=== PATIENT | female | born 1985 | race Caucasian/White ===

== ENCOUNTER 2017-09-20 18:36 | Inpatient (IN) | payer OTHER ==
[2017-09-20 20:45] VITALS: BMI 24.0
[2017-09-20] MEDS ORDERED: MELATONIN 5 MG TABLETS PO PRN (22:00)
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
[2017-09-20] MEDS ORDERED: MAG HYDROX/AL HYDROX/SIMETH 30 ML UNIT-DOSE CUP PO PRN (22:45)
[2017-09-20] MEDS ORDERED: LOPERAMIDE HCL 2 MG CAPSULE PO PRN (22:45)
[2017-09-20] MEDS ORDERED: MENTHOL/PHENOL 1 EACH UD MM PRN (22:45)
[2017-09-20] MEDS ORDERED: guaiFENesin/D-METHORPHAN HB 10 ML UNIT-DOSE CUPS PO PRN (22:45)
[2017-09-20] MEDS ORDERED: MAGNESIUM CITRATE 300 ML BOTTLE PO PRN (22:45)
[2017-09-20] MEDS ORDERED: P-EPHED 60MG/TRIPROLIDI 2.5MG TABLET PO PRN (22:45)
[2017-09-20] MEDS ORDERED: ACETAMINOPHEN 325 MG TABLET (FP) PO PRN (22:45)
[2017-09-20] MEDS ORDERED: IBUPROFEN 400 MG TABLET (FP) PO PRN (22:45)
[2017-09-20] MEDS ORDERED: MAGNESIUM HYDROX 2400MG/30ML ORAL SUSPENSION 30 ML CUP PO PRN (22:45)
[2017-09-20] MEDS ORDERED: diazePAM 5 MG TABLET PO ONE (22:45)
[2017-09-20] MEDS ORDERED: cloNIDine HCL 0.1 MG TABLET PO ONE (22:56)
[2017-09-21] MEDS ORDERED: cloNIDine HCL 0.1 MG TABLET PO ONE (01:30)
[2017-09-21] MEDS: LIDOCAINE PATCH REMOVAL MC SCH ×2 (01:32→22:01)
[2017-09-21] MEDS: diazePAM 5 MG TABLET PO SCH ×5 (01:33→21:54)
[2017-09-21] MEDS: diazePAM 5 MG TABLET PO PRN ×3 (05:45→16:00)
[2017-09-21] MEDS ORDERED: CYCLOBENZAPRINE HCL 5 MG TABLET PO SCH (06:00)
--- NOTE | 2017-09-21 08:57 | EKG ---
Test Reason : Blood Pressure : / mmHG Vent. Rate : 086 BPM Atrial Rate : 086 BPM P-R Int : 124 ms QRS Dur : 078 ms QT Int : 372 ms P-R-T Axes : 073 075 043 degrees QTc Int : 445 ms NORMAL SINUS RHYTHM NORMAL ECG NO PREVIOUS ECGS AVAILABLE Confirmed by MARCK DOMINGUEZ MD ([id number]) on 09/21/2017 8:56:55 AM Referred By: Confirmed By:MARCK DOMINGUEZ MD
[2017-09-21] MEDS: PRENATAL VITAMINS W/ FOLIC ACID TABLET (FP) PO SCH (10:24)
[2017-09-21] MEDS: LIDOCAINE 5% TOPICAL PATCH TP SCH (10:26)
[2017-09-21] MEDS ORDERED: METHADONE HCL 10 MG TABLET (FOR DETOX USE ONLY) PO ONE ×2 (10:32→23:00)
--- NOTE | 2017-09-21 10:33 | PN ---
[facility] CIWA - CIWA Score Nausea/Vomitin Muscle Tremors: 3 Anxiety: 2 Agitation: 2 Paroxysmal Sweats: 1-Minimal Palms Moist Orientation: 0-Oriented Tacttile Disturbances: 1-Very Mild Itch/Numbness Auditory Disturbances: 1-Very Mild Visual Disturbances: 0-None Headache: 2-Mild CIWA-Ar Total Score: 15 BHS COWS - Scale Resting Pulse: 1= [place] 81-100 Sweatin= Chills/Flushing Restless Observation: 3= Extraneous Movement Pupil Size: 1= Pupils >than Normal Bone or Joint Aches: 2= Severe Diffuse Aches Runny Nose/ Eye Tearin= Runny Nose/Eyes GI Upset > 30mins: 2= Nausea/Diarrhea Tremor Observation of Outstretched Hands: 2= Slight Tremor Visible Yawning Observation: 1= 1-2x During Session Anxiety or Irritability: 2=Irritable/Anxious Goose Flesh Skin: 0=Smooth Skin COWS Score: 17 S Progress Note (SOAP) Subjective: alert,irritable,anxious,interrupted leep,pain in the body and back Objective: 09/21/17 10:31 Vital Signs Temperature 97.9 F 09/21/17 10:01 Pulse Rate 86 09/21/17 10:01 Respiratory Rate 18 09/21/17 10:01 Blood Pressure 140/91 09/21/17 10:01 O2 Sat by Pulse Oximetry (%) ekg nsr,normal ecg qt/qtc 372/445 labs pending Assessment: 09/21/17 10:33 withdrawal symptom Plan: continue detox
[2017-09-21] MEDS ORDERED: CYCLOBENZAPRINE HCL 10 MG TABLET (FP) PO PRN (10:34)
[2017-09-21 10:59] LABS: CHLORIDE 103 mmol/L (98-107); HEMATOCRIT 43.1 % (32.4-45.2); HEMOGLOBIN 14.5 GM/dL (10.7-15.3); MCH 30.8 pg (25.7-33.7); MCHC 33.7 g/dl (32.0-36.0); MEAN CELL VOLUME 91.3 fl (80-96); MEAN PLT VOLUME 10.3 fl (7.5-11.1); PLATELET COUNT 282 K/MM3 (134-434); POTASSIUM 4.3 mmol/L (3.5-5.1); RBC 4.72 M/mm3 (3.60-5.2); RDW 14.2 % (11.6-15.6); SODIUM 141 mmol/L (136-145)
[2017-09-21 11:27] LABS: ALK PHOS 104 U/L (45-117); ANION GAP 11 (8-16); BILIRUBIN,TOTAL 0.8 mg/dL (0.2-1.0); BLOOD UREA NITROGEN 8 mg/dL (7-18); CALCIUM 9.2 mg/dL (8.5-10.1); CO2 27 mmol/L (21-32); CREATININE 0.5 mg/dL (0.55-1.02); GLUCOSE,RANDOM 88 mg/dL (74-106); SGOT/AST 24 U/L (15-37); SGPT/ALT 26 U/L (12-78); TOT PROT 7.6 g/dl (6.4-8.2)
--- NOTE | 2017-09-21 13:29 | CONSULT ---
[facility] Psychiatric Consult - Data Date of interview: 09/21/17 Admission source: [facility] Identifying data: Patient is a 31 year old single female, without kids, domiciled and employed. This is patient's first admission to detox at [facility]. Pt. admitted to for opioid and benzodiazepine dependence. Substance Abuse History: Smoking Cessation. Smoking history: Former smoker. Have you smoked in the past 12 months: No. Hx Chewing Tobacco Use: No. Initiated information on smoking cessation: No. - Substance & Tx. History. Hx Alcohol Use: Yes. Hx Substance Use: Yes. Substance Use Type: Opiates, Tranquilizers. Hx Substance Use Treatment: Yes (Last detox nd2014.). - Substances Abused. GHB. Route: Oral. Frequency: Daily. Amount used: 1/ 5 pint. Age of first use: 22. Date of Last Use: 09/19/17. Oxycontin. Route: Oral. Frequency: Daily. Amount used: 1 - 2 40mg tab. Age of first use : 14. Date of Last Use: 09/19/17. Alprazolam (Xanax). Route: Oral. Frequency: Daily. Amount used: 3 x 1 mg tabs. Age of first use: 27. Date of Last Use: 09/19/17 Medical History: Breast implants 2009 Psychiatric History: Patient denies h/o psychiatric hospitalizations, outpatient care, and suicide attempt. Physical/Sexual Abuse/Trauma History: Denies. Mental Status Exam - Mental Status Exam Alert and Oriented to: Time, Place, Person Cognitive Function: Good Patient Appearance: Unkempt Mood: Withdrawn Affect: Mood Congruent Patient Behavior: Sedated, Fatigued Speech Pattern: Delayed Voice Loudness: Moderately Soft/Quiet Thought Process: Intact, Goal Oriented Thought Disorder: Not Present Hallucinations: Denies Suicidal Ideation: Denies Homicidal Ideation: Denies Insight/Judgement: Poor Sleep: Fair Appetite: Fair Muscle strength/Tone: Normal Gait/Station: Normal Psychiatric Findings - Problem List ([place] 1, 2,3) (1) Amphetamine dependence Current Visit: Yes Status: Acute (2) Opioid dependence with withdrawal Current Visit: Yes Status: Acute (3) Sedative, hypnotic or anxiolytic dependence with withdrawal, unspecified Current Visit: Yes Status: Acute (4) Substance induced mood disorder Current Visit: Yes Status: Acute - Initial Treatment Plan Initial Treatment Plan: Psychoeducation provided. Detoxification in progress. Observation.
[2017-09-21] MEDS ORDERED: NICOTINE POLACRILEX 2 MG GUM BUC PRN (14:32)
[2017-09-21 14:44] LABS: URINE APPEARANCE SLCLOUDY; URINE BILIRUBIN NEGATIVE (<2.0 mg/dL); URINE COLOR YELLOW; URINE GLUCOSE (UA) NEGATIVE (NEGATIVE); URINE KETONE NEGATIVE (NEGATIVE); URINE LEUK ESTERASE NEGATIVE (NEGATIVE); URINE NITRITE NEGATIVE (NEGATIVE); URINE PROTEIN NEGATIVE (NEGATIVE); URINE UROBILINOGEN NEGATIVE mg/dL (0.2-1.0)
[2017-09-21] MEDS: hydrOXYzine PAMOATE 50 MG CAPSULE (FP) PO PRN (16:35)
[2017-09-21] MEDS: NICOTINE 21 MG/24 HOURS TOPICAL PATCH TD SCH (18:47)
[2017-09-21] MEDS: cloNIDine HCL 0.1 MG TABLET PO SCH (21:55)
[2017-09-21] MEDS: THIAMINE HCL 100 MG TABLET (FP) PO SCH (22:03)
[2017-09-22] MEDS: diazePAM 5 MG TABLET PO PRN ×3 (03:07→19:44)
[2017-09-22] MEDS ORDERED: METHADONE HCL 10 MG TABLET (FOR DETOX USE ONLY) PO ONE (10:00)
[2017-09-22] MEDS: NICOTINE 21 MG/24 HOURS TOPICAL PATCH TD SCH (10:44)
[2017-09-22] MEDS: cloNIDine HCL 0.1 MG TABLET PO SCH ×2 (10:44→22:25)
[2017-09-22] MEDS: PRENATAL VITAMINS W/ FOLIC ACID TABLET (FP) PO SCH (10:44)
[2017-09-22] MEDS: diazePAM 5 MG TABLET PO SCH ×2 (10:44→22:25)
[2017-09-22] MEDS: LIDOCAINE 5% TOPICAL PATCH TP SCH (10:45)
--- NOTE | 2017-09-22 11:23 | PN ---
[facility] CIWA - CIWA Score Nausea/Vomitin Muscle Tremors: 3 Anxiety: 3 Agitation: 2 Paroxysmal Sweats: 3 Orientation: 0-Oriented Tacttile Disturbances: 0-None Auditory Disturbances: 0-None Visual Disturbances: 0-None Headache: 0-None Present CIWA-Ar Total Score: 14 S COWS - Scale Resting Pulse: 1= [place] 81-100 Sweatin=Flushed/Facial Moisture Restless Observation: 1= Difficult to Sit Still Pupil Size: 0= Normal to Room Light Bone or Joint Aches: 1= Mild Discomfort Runny Nose/ Eye Tearin= Nasal Congestion GI Upset > 30mins: 0= None Tremor Observation of Outstretched Hands: 2= Slight Tremor Visible Yawning Observation: 1= 1-2x During Session Anxiety or Irritability: 2=Irritable/Anxious Goose Flesh Skin: 0=Smooth Skin COWS Score: 11 [facility] Progress Note (SOAP) Subjective: Sweats shakes sleep disturbance c/o "Can't see out of R eye", says she does not know if she scratched her eye or not Objective: 09/22/17 11:23 A & O x 3 No foreign object noted to R eye Some tearing and slight redness noted Vital Signs Temperature 98.4 F 09/22/17 09:34 Pulse Rate 84 09/22/17 09:34 Respiratory Rate 18 09/22/17 09:34 Blood Pressure 126/75 09/22/17 09:34 O2 Sat by Pulse Oximetry (%) Laboratory Last Values WBC 10.0 K/mm3 (4.0-10.0) 09/21/17 08:00 RBC 4.72 M/mm3 (3.60-5.2) 09/21/17 08:00 Hgb 14.5 GM/dL (10.7-15.3) 09/21/17 08:00 Hct 43.1 % (32.4-45.2) 09/21/17 08:00 MCV 91.3 fl (80-96) 09/21/17 08:00 MCH 30.8 pg (25.7-33.7) 09/21/17 08:00 MCHC 33.7 g/dl (32.0-36.0) 09/21/17 08:00 RDW 14.2 % (11.6-15.6) 09/21/17 08:00 Plt Count 282 K/MM3 (134-434) 09/21/17 08:00 MPV 10.3 fl (7.5-11.1) 09/21/17 08:00 Sodium 141 mmol/L (136-145) 09/21/17 08:00 Potassium 4.3 mmol/L (3.5-5.1) 09/21/17 08:00 Chloride 103 mmol/L (98-107) 09/21/17 08:00 Carbon Dioxide 27 mmol/L (21-32) 09/21/17 08:00 Anion Gap 11 (8-16) 09/21/17 08:00 BUN 8 mg/dL (7-18) 09/21/17 08:00 Creatinine 0.5 mg/dL (0.55-1.02) L 09/21/17 08:00 Creat Clearance w eGFR > 60 (>60) 09/21/17 08:00 Random Glucose 88 mg/dL (74-106) 09/21/17 08:00 Calcium 9.2 mg/dL (8.5-10.1) 09/21/17 08:00 Total Bilirubin 0.8 mg/dL (0.2-1.0) 09/21/17 08:00 AST 24 U/L (15-37) 09/21/17 08:00 ALT 26 U/L (12-78) 09/21/17 08:00 Alkaline Phosphatase 104 U/L (45-117) 09/21/17 08:00 Total Protein 7.6 g/dl (6.4-8.2) 09/21/17 08:00 Albumin 4.0 g/dl (3.4-5.0) 09/21/17 08:00 Urine Color Yellow 09/21/17 12:50 Urine Appearance Slcloudy 09/21/17 12:50 Urine pH 7.0 (5.0-8.0) 09/21/17 12:50 Ur Specific [place] 1.011 (1.001-1.035) 09/21/17 12:50 Urine Protein Negative (NEGATIVE) 09/21/17 12:50 Urine Glucose (UA) Negative (NEGATIVE) 09/21/17 12:50 Urine Ketones Negative (NEGATIVE) 09/21/17 12:50 Urine Blood Negative (NEGATIVE) 09/21/17 12:50 Urine Nitrite Negative (NEGATIVE) 09/21/17 12:50 Urine Bilirubin Negative (<2.0 mg/dL) 09/21/17 12:50 Urine Urobilinogen Negative mg/dL (0.2-1.0) 09/21/17 12:50 Ur Leukocyte Esterase Negative (NEGATIVE) 09/21/17 12:50 RPR Titer Nonreactive (NONREACTIVE) 09/21/17 08:00 labs noted Assessment: 09/22/17 11:24 Withdrawal sx ?R eye irritation/? corneal abrasion? Plan: Continue detox Antibiotics drop to R eye Increase hydration
[2017-09-22] MEDS ORDERED: SULFACETAMIDE/PREDNISOLONE 0.2% OPTHALMIC SUSP 5 ML BOTTLE OD ONE (11:29)
[2017-09-22] MEDS ORDERED: SULFACETAMIDE/PREDNISOLONE 0.2% OPTHALMIC SUSP 5 ML BOTTLE OD SCH (12:15)
[2017-09-22] MEDS: SULFACETAMIDE/PREDNISOLONE 0.2% OPTHALMIC SUSP 5 ML BOTTLE OD SCH (17:29)
[2017-09-22] MEDS: hydrOXYzine PAMOATE 50 MG CAPSULE (FP) PO PRN (17:32)
[2017-09-22] MEDS: THIAMINE HCL 100 MG TABLET (FP) PO SCH (22:26)
[2017-09-22] MEDS: LIDOCAINE PATCH REMOVAL MC SCH (22:26)
[2017-09-23] MEDS: diazePAM 5 MG TABLET PO PRN ×2 (01:32→05:25)
[2017-09-23] MEDS: hydrOXYzine PAMOATE 50 MG CAPSULE (FP) PO PRN (06:21)
[2017-09-23 09:15] VITALS: BP 95/54; PULSE 66; TEMP 97.6
[2017-09-23] MEDS ORDERED: METHADONE HCL 5 MG TABLET (FOR DETOX USE ONLY) PO ONE (10:00)
[2017-09-23] MEDS: PRENATAL VITAMINS W/ FOLIC ACID TABLET (FP) PO SCH (10:33)
[2017-09-23] MEDS: SULFACETAMIDE/PREDNISOLONE 0.2% OPTHALMIC SUSP 5 ML BOTTLE OD SCH (10:34)
[2017-09-23] MEDS: LIDOCAINE 5% TOPICAL PATCH TP SCH (10:34)
[2017-09-23] MEDS: diazePAM 5 MG TABLET PO SCH (10:34)
[2017-09-23] MEDS: cloNIDine HCL 0.1 MG TABLET PO SCH (10:35)
[2017-09-23] MEDS: NICOTINE 21 MG/24 HOURS TOPICAL PATCH TD SCH (10:35)
--- NOTE | 2017-09-23 13:30 | DS ---
[facility] Detox Discharge Summary Admission Date: 09/20/17 Discharge Date: 09/23/17 - History Present History: Opioid Dependence, Sedative Dependence Additional Comments: 31 years old female admitted on 09/20/17 for opiate and banzo withdrawal sx patient wants phenobarbital as detox agent that she had been detoxed 10+ years ago at [place] received twice daily oxycodone 40 mg monthly prescription last filled 08/23/17 received three times daily xanax 1 mg monthly prescription last filled 08/23/17 patient insists to terminate current methadone and valium detox regimen insists phenobarbital as detox agent "father is waiting down stair" to take Kemi home Pertinent Past History: encourage the patient discuss pain manage by oxycodone and anxiety manage by xanax with psychiatrist or primary care provider explore options of medication - assisted maintenance treatment - Physical Exam Results Vital Signs: Vital Signs Temperature 97.6 F 09/23/17 09:14 Pulse Rate 66 09/23/17 09:14 Respiratory Rate 16 09/23/17 09:14 Blood Pressure 95/54 09/23/17 09:14 O2 Sat by Pulse Oximetry (%) Pertinent Admission Physical Exam Findings: opiate and banzo withdrawal sx Vital Signs Temperature 97.6 F 09/23/17 09:14 Pulse Rate 66 09/23/17 09:14 Respiratory Rate 16 09/23/17 09:14 Blood Pressure 95/54 09/23/17 09:14 O2 Sat by Pulse Oximetry (%) Laboratory Last Values WBC 10.0 K/mm3 (4.0-10.0) 09/21/17 08:00 RBC 4.72 M/mm3 (3.60-5.2) 09/21/17 08:00 Hgb 14.5 GM/dL (10.7-15.3) 09/21/17 08:00 Hct 43.1 % (32.4-45.2) 09/21/17 08:00 MCV 91.3 fl (80-96) 09/21/17 08:00 MCH 30.8 pg (25.7-33.7) 09/21/17 08:00 MCHC 33.7 g/dl (32.0-36.0) 09/21/17 08:00 RDW 14.2 % (11.6-15.6) 09/21/17 08:00 Plt Count 282 K/MM3 (134-434) 09/21/17 08:00 MPV 10.3 fl (7.5-11.1) 09/21/17 08:00 Sodium 141 mmol/L (136-145) 09/21/17 08:00 Potassium 4.3 mmol/L (3.5-5.1) 09/21/17 08:00 Chloride 103 mmol/L (98-107) 09/21/17 08:00 Carbon Dioxide 27 mmol/L (21-32) 09/21/17 08:00 Anion Gap 11 (8-16) 09/21/17 08:00 BUN 8 mg/dL (7-18) 09/21/17 08:00 Creatinine 0.5 mg/dL (0.55-1.02) L 09/21/17 08:00 Creat Clearance w eGFR > 60 (>60) 09/21/17 08:00 Random Glucose 88 mg/dL (74-106) 09/21/17 08:00 Calcium 9.2 mg/dL (8.5-10.1) 09/21/17 08:00 Total Bilirubin 0.8 mg/dL (0.2-1.0) 09/21/17 08:00 AST 24 U/L (15-37) 09/21/17 08:00 ALT 26 U/L (12-78) 09/21/17 08:00 Alkaline Phosphatase 104 U/L (45-117) 09/21/17 08:00 Total Protein 7.6 g/dl (6.4-8.2) 09/21/17 08:00 Albumin 4.0 g/dl (3.4-5.0) 09/21/17 08:00 Urine Color Yellow 09/21/17 12:50 Urine Appearance Slcloudy 09/21/17 12:50 Urine pH 7.0 (5.0-8.0) 09/21/17 12:50 Ur Specific [place] 1.011 (1.001-1.035) 09/21/17 12:50 Urine Protein Negative (NEGATIVE) 09/21/17 12:50 Urine Glucose (UA) Negative (NEGATIVE) 09/21/17 12:50 Urine Ketones Negative (NEGATIVE) 09/21/17 12:50 Urine Blood Negative (NEGATIVE) 09/21/17 12:50 Urine Nitrite Negative (NEGATIVE) 09/21/17 12:50 Urine Bilirubin Negative (<2.0 mg/dL) 09/21/17 12:50 Urine Urobilinogen Negative mg/dL (0.2-1.0) 09/21/17 12:50 Ur Leukocyte Esterase Negative (NEGATIVE) 09/21/17 12:50 RPR Titer Nonreactive (NONREACTIVE) 09/21/17 08:00 lab noted - Treatment Hospital Course: Detox Protocol Followed, Responded well Patient has Accepted a Rehab Referral to: [facility] - Medication Discharge Medications: Ambulatory Orders Alprazolam [Xanax] 4 mg PO DAILY 09/20/17 Oxycodone HCl [Oxycodone HCl ER] 20 mg PO BID 09/20/17 - Diagnosis (1) Opioid dependence with withdrawal Status: Acute (2) Pain management Status: Chronic (3) Sedative, hypnotic or anxiolytic dependence with withdrawal, unspecified Status: Acute (4) Xanax use disorder, mild, in controlled environment Status: Acute - AMA Did Patient Leave Against Medical Advice: Yes
[2017-09-24] MEDS ORDERED: METHADONE HCL 5 MG TABLET (FOR DETOX USE ONLY) PO ONE (10:00)
[2017-09-24] MEDS ORDERED: diazePAM 5 MG TABLET PO SCH (10:00)
[2017-09-25] MEDS ORDERED: METHADONE HCL 10 MG TABLET (FOR DETOX USE ONLY) PO ONE (10:00)
[2017-09-26] MEDS ORDERED: METHADONE HCL 5 MG TABLET (FOR DETOX USE ONLY) PO ONE (06:00)
== END 2017-09-23 11:35 | disposition left against medical advice (07) | DRG 770 ==
LOC: YASAS 18:36 → Y6N 19:51
PROVIDERS: ADMIT Surgery; ATTEND Surgery
PROC: HZ2ZZZZ Detoxification Services for Substance Abuse Treatment (ICD-10-PCS; principal; 2017-09-20)
DX: F11.23 Opioid dependence with withdrawal (principal); F13.230 Sedative, hypnotic or anxiolytic dependence with withdrawal, uncomplicated; F19.24 Other psychoactive substance dependence with psychoactive substance-induced mood disorder; F41.9 Anxiety disorder, unspecified; M54.42 Lumbago with sciatica, left side; H57.8 Other specified disorders of eye and adnexa; R03.0 Elevated blood-pressure reading, without diagnosis of hypertension
CPT/HCPCS: 36415; 80053; 81003; 85027; 86593; 93005; 93010; J0735